=== PATIENT | male | born 1975 | race Caucasian/White ===

== ENCOUNTER 2016-10-19 08:54 | Emergency (ER) | payer OTHER ==
[2016-10-19 09:10] VITALS: RESP 16; TEMP 98.4; O2SAT 96
[2016-10-19] MEDS ORDERED: TDAP ADULT 0.5 ML INJ (BOOSTRIX) IM ONE (09:10)
[2016-10-19] MEDS ORDERED: LET GEL TOPICAL 1 EA SYR TP ONE (09:15)
--- NOTE | 2016-10-19 09:25 | EDPHY ---
H & P Time Seen by Provider: 10/19/16 09:10 HPI/ROS: This patient was wearing flip-flops walk the fields, stepped on stump with a sharp piece of wood protruding. He stepped on this and it punctured the flip- flop causing puncture wound to the mid plantar left foot with initial severe pain and moderate bleeding. He clean the wound at home. The bleeding resolved with direct pressure after several minutes. The injury occurred at 6:00 p.m. last night. He reports taking 600 mg of ibuprofen 7:45 a.m. with partial relief in reports minimal discomfort currently at rest but 8/10 pain when he tries to bear weight on the affected foot. He is concerned about potential foreign body. 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 His vision improved after that stroke but he reports that after practicing golf swing in his kitchen 2 months ago he developed neck pain in the posterior neck similar to his pain with vertebral artery dissection. since that time he has had intermittent fleeting pain to the posterior neck with certain neck movements the concern him and his for potential recurrence of vertebral artery dissection. He Thinks he also had briefly slurred speech 2 months agobut for some reason did not seek medical attention. He reports that his speech normalized but he has persistent posterior neck pain at times 7/10 intensity worse with twisting his head and ongoing vision symptoms that concerns him about potential recurrence of vertebral artery dissection. in describing the vision symptoms he describes some difficulty focusing his vision particular when he is looking at a screen for any period of time he reports this is similar to the symptoms he had with cerebellar stroke. He has not had the vertiginous symptoms that accompanied his cerebellar stroke however. ROS: Constitutional: No symptoms. No fever. Neuro: No headache. Reports no focal weakness. Symptoms as per HPI. No focal numbness. No confusion. Musculoskeletal: He reports some bony pain to the foot. No other injuries. Pulmonary: No shortness of breath. No cough. Cardiovascular: No chest pain or heart palpitations. No lightheadedness. GI: No nausea vomiting : No complaints Integumentary: As per HPI. No other complaints Endocrine: Negative Complete review of symptoms is otherwise negative. Past Medical/Surgical History: He thinks his last tetanus was just over 10 years ago Social History: He denies any recreational drug use. He is with 3 children Smoking Status: Never smoked Physical Exam: Physical Exam Vital signs are normal. General: No acute distress HEENT: Atraumatic. neck: No midline tenderness. Supple. Eyes: Pupils equal and react to light. Extraocular motions are intact. Lungs: No respiratory distress. Cardiac: Brisk capillary refill is intact throughout. Pulses are 2+ and symmetric in the affected extremity. Skin: No rash or pallor. Extremities: Atraumatic normal except for left foot Left foot: Patient has a 6 mm puncture wound to the mid forefoot with associated tenderness. No active bleeding. Neuro: GCS 15. Cranial nerves 2-12 grossly intact. confrontation Visual camarena are full and intact bilaterally no pronator drift. Initial differential diagnosis: Puncture wound -rule out foreign body, vertebral artery dissection, stroke, neck strain, musculoskeletal neck pain Constitutional: Initial Vital Signs Temperature (C) 36.9 C 10/19/16 08:55 Heart Rate 74 10/19/16 08:55 Respiratory Rate 16 10/19/16 08:55 Blood Pressure 124/80 H 10/19/16 08:55 O2 Sat (%) 96 10/19/16 08:55 O2 Delivery Mode Room Air Allergies/Adverse Reactions: No Known Allergies Allergy (Verified 10/19/16 09:05) Home Medications: Medication Instructions Recorded None 08/11/09 Cephalexin [Keflex (*)] 500 mg PO TID #15 cap 10/19/16 Ciprofloxacin [Cipro] 500 mg PO BID #10 tab 10/19/16 MDM/Departure - MDM Imaging Results: Imaging Impressions Foot X-Ray 10/19/16 09:15 Impression: No acute osseous abnormality. No evidence for an opaque foreign body. Head CT 10/19/16 10:17 Impression: Evidence of sequela of an old infarct in the right cerebellum. No acute intracranial abnormalities visualized. Results called and discussed with Dr. Сергей Arreguin on 10/19/2016 at 1200 hours. Neck CTA 10/19/16 10:18 Impression: Limited study secondary to timing of the contrast and imaging with prominent opacification of the veins. The carotid arteries are widely patent. Limited visualization of the vertebral arteries show the evaluation for dissection is limited. This could be repeated after delay to allow the patient to clear the contrast. If needed, this could be performed more urgently, but may be limited with circulating contrast. Results called and discussed with Dr. Сергей Arreguin on 10/19/2016 at 1206 hours. Imaging: Discussed imaging studies w/ marketing strategy manager Radiologist Medications Given: Discontinued Medications Diphtheria/Tetanus/Acell Pertussis (Boostrix) 0.5 ml IM .ONCE ONE Stop: 10/19/16 09:11 Last Admin: 10/19/16 09:31 Dose: 0.5 ml Tetracaine/Epinephrine/Lidocaine (Let Gel Topical) 1 ea TP EDNOW ONE Stop: 10/19/16 09:16 Last Admin: 10/19/16 09:35 Dose: 1 ea ED Course/Re-evaluation: Foot care: What solution is applied followed by 1% plain lidocaine, sodium bicarb buffer -27 gauge needle 3 mL injected to puncture wound plantar aspect of foot after cleaning with chlorhexidine with good anesthesia. Then explored the wound removed the small foreign body -during verses piece of wood that was near the entrance of the wound. With magnifying loops and good lighting -wound exploration I appreciate no other foreign bodies present in the wound. The wound is approximately 1.5-2 cm deep since a bit difficult to fully see the base of the wound but again I appreciate with decent visualization the field no foreign bodies. Wound is then irrigated with saline by our tech -250 mL, A dressing is placed. Patient is placed in a postop shoe. He tolerated the wound care without difficulty in the were no complications. On radiograph I appreciate no evidence of foreign body either in the foot. Given there is a puncture wound through an old flip flop, I feel it is important to cover Pseudomonas since patient will treat him prophylactically with Cipro and Keflex. I counseled regarding this. Regarding his subtle sense of vision changes at and intermittent neck pain with history of vertebral artery dissection and lack of compliance with aspirin this prompted neuro imaging. The CT brain reveals no evidence of new stroke. The angiogram of the neck was technically limited due to timing of the image that caught both venous and arterial dye making it difficult to fully evaluate the vertebral artery but no gross abnormalities were noted. I do not feel the will benefit from repeat studies today since the patient has an IV low contrast load on board. Given his minimal symptoms I think it is safe to hold on further neuro imaging at this time arrange for close follow-up. I discussed this case with Dr. Joaquín Berman -neurologist on-call for Dr. Smith who suggests the patient started 325 mg of aspirin a day and to follow up with Dr. Smith this week. He agrees with holding on any further neuro imaging at this time. - Depart Disposition: Home, Routine, Self-Care Clinical Impression: Vision changes, Neck pain Puncture wound of foot Qualifiers: Encounter type: initial encounter Laterality: left Qualified Code(s): S91.332A - Puncture wound without foreign body, left foot, initial encounter Condition: Good Instructions: Puncture Wound (ED), Blurred Vision (ED) Additional Instructions: diagnosis: 1. Vision change 2. Neck pain 3. puncture wound to foot Plan: aspirin -325 mg a day Cipro antibiotic Keflex antibiotic for your foot wound. Probiotic and/or yogurt while on these meds to prevent diarrhea Clean the wound daily with warm soapy water Tylenol and ibuprofen for pain as needed. Return if he develops redness, discharge, fevers or other concerns for infection. call Dr. Smith tomorrow (Thursday)-your neurologist to arrange follow-up appointment for sometime within the next week. Return emergency department for any significant worsening of her symptoms despite the treatment plan Prescriptions: Cephalexin [Keflex (*)] 500 mg PO TID #15 cap Ciprofloxacin [Cipro] 500 mg PO BID #10 tab Referrals: Geovanny Quispe MD [Primary Care Provider] - As per Instructions Colt Smith MD [Medical Doctor] - As per Instructions
[2016-10-19] MEDS ORDERED: IOPAMIDOL (ISOVUE 370) 100 ML BTL IV ONE (10:33)
[2016-10-19 10:47] LABS: % IMMATURE GRANULYOCYTES 0.4 % (0.0-1.1); ABSOLUTE IMMATURE GRANULOCYTES 0.02 10^3/uL (0.00-0.10); ADD DIFF? NO; ADD MORPH? NO; ADD SCAN? NO; ATYPICAL LYMPHOCYTE FLAG 0 (0-99); FRAGMENT RBC FLAG 0 (0-99); HEMATOCRIT 44.2 % (40.0-51.0); HEMOGLOBIN 15.2 g/dL (13.7-17.5); LEFT SHIFT FLG 0 (0-99); LIPEMIA HEMOLYSIS FLAG 90 (0-99); MEAN CELL HEMOGLOBIN 32.3 pg (27.9-34.1); MEAN CELL HEMOGLOBIN CONCENTR. 34.4 g/dL (32.4-36.7); MEAN CELL VOLUME 93.8 fL (81.5-99.8); MEAN PLATELET VOLUME 9.3 fL (8.7-11.7); PLATELET CLUMPS FLAG 10 (0-99); PLATELET COUNT 149 10^3/uL (150-400); RED BLOOD CELL COUNT 4.71 10^6/uL (4.40-6.38); RED CELL DISTRIBUTION WIDTH 12.7 % (11.5-15.2)
[2016-10-19 11:07] LABS: ANION GAP 13 mEq/L (8-16); CALCIUM 9.5 mg/dL (8.5-10.4); CARBON DIOXIDE 24 mEq/l (22-31); CHLORIDE 102 mEq/L (97-110); CREATININE 0.8 mg/dL (0.7-1.3); GLOMERULAR FILTRATION RATE > 60; GLUCOSE 98 mg/dL (70-100); POTASSIUM 4.8 mEq/L (3.5-5.2); SODIUM 139 mEq/L (134-144)
[2016-10-19 12:25] VITALS: BP 109/75; PULSE 71
== END 2016-10-19 12:25 | disposition home or self-care (01) ==
LOC: CED 08:54
DX: S91.332A Puncture wound without foreign body, left foot, initial encounter (principal); S19.9XXA Unspecified injury of neck, initial encounter; H53.8 Other visual disturbances; Z23 Encounter for immunization; W45.8XXA Other foreign body or object entering through skin, initial encounter; Y99.8 Other external cause status; Y93.01 Activity, walking, marching and hiking
CPT/HCPCS: 70450-PO; 70498-PO; 73620-PO; 80048-PO; 85025-PO; L3260; Q9967